=== PATIENT | male | born 2000 | race Caucasian/White ===

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

== ENCOUNTER 2024-09-19 04:34 | Emergency (ER) | payer OTHER ==
[2024-09-19 05:34] LABS: PLATELET COUNT, AUTOMATED 370 10^3/uL (150-450)
[2024-09-19 06:04] LABS: ETHYL ALCOHOL (ETHANOL) 0.196 % (0.000-0.010)
[2024-09-19 06:05] LABS: SALICYLATE LEVEL < 3.0 MG/DL (<30)
[2024-09-19 06:06] LABS: ALT/SGPT 19 U/L (7.0-40); AST/SGOT 28 U/L (<34); CALCIUM LEVEL 9.3 MG/DL (8.5-10.1); CARBON DIOXIDE LEVEL 26 MMOL/L (20-31); CHLORIDE LEVEL 101 MMOL/L (98-107); CREATININE FOR GFR 0.94 MG/DL (0.70-1.30); GLOMERULAR FILTRATION RATE > 90.0 (>60); POTASSIUM SERUM 4.2 MMOL/L (3.5-5.1); SODIUM LEVEL 141 MMOL/L (136-145)
[2024-09-19 06:07] LABS: AMPHETAMINES LEVEL URINE NEGATIVE (NEGATIVE); BARBITURATES URINE NEGATIVE (NEGATIVE); BENZODIAZEPINES URINE NEGATIVE (NEGATIVE); COCAINE METABOLITE URINE NEGATIVE (NEGATIVE)
[2024-09-19 06:08] LABS: CANNABINOIDS URINE NEGATIVE (NEGATIVE); METHADONE URINE NEGATIVE (NEGATIVE); OPIATES URINE NEGATIVE (NEGATIVE); PHENCYCLIDINE URINE NEGATIVE (NEGATIVE)
[2024-09-19] MEDS ORDERED: HOME MED LIST COMPLETE! XX SCH (09:40)
[2024-09-19 13:56] VITALS: BP 133/71; TEMP 98.4; O2SAT 99
== END 2024-09-19 13:58 | disposition home or self-care (01) ==
LOC: M ED 04:34
DX: F10.120 Alcohol abuse with intoxication, uncomplicated (principal)